=== PATIENT | female | born 1985 | race American Indian/Alaskan Native ===

== ENCOUNTER 2018-07-28 16:05 | Emergency (ER) | payer OTHER ==
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
--- NOTE | 2018-07-28 18:37 | Cat Scan Report ---
PROCEDURE: CT LUMBAR SPINE WO CON HISTORY: numbness rectal/vaginal, left leg tingling FINDINGS: Unenhanced CT of the lumbar spine was performed and data was reformatted into the sagittal and coronal planes. These images demonstrate no fracture or malalignment of the lumbar spine. There is no evidence of davey tral canal stenosis and significant neural foraminal narrowing or nerve root impingement. There is a right nonobstructing renal calculus 0.5 cm. There is an IUD. IMPRESSION: No fracture is seen in the lumbar spine No evidence of canal stenosis or nerve root impingement Right nonobstructing renal calculus This document is electronically signed by Abrahan Nieves MD., July 28 2018 06:34:46 PM ET
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
[2018-07-28 20:03] LABS: Basophils # (Auto) 0.1 K/mm3 (0.0-0.1); Basophils % (Auto) 1.4 % (0.0-1.8); Eosinophils # (Auto) 0.4 K/mm3 (0.0-0.4); Eosinophils % (Auto) 6.4 % (0.0-4.3); Hematocrit 34.5 % (30.3-42.9); Hemoglobin 12.1 gm/dl (10.1-14.3); Lymphocytes # (Auto) 2.8 K/mm3 (1.2-5.4); Lymphocytes % (Auto) 40.9 % (13.4-35.0); Mean Corpuscular HGB Conc 35 % (30-34); Mean Corpuscular Volume 95 fl (79-97); Monocytes # (Auto) 0.7 K/mm3 (0.0-0.8); Monocytes % (Auto) 10.1 % (0.0-7.3); Platelet Count 257 K/mm3 (140-440); Red Blood Count 3.63 M/mm3 (3.65-5.03); Red Cell Distribution Width 13.6 % (13.2-15.2)
[2018-07-28 20:13] LABS: INR 0.99 (0.87-1.13)
[2018-07-28 20:27] LABS: Alanine Aminotransferase 31 units/L (7-56); Albumin 4.4 g/dL (3.9-5); BUN/Creatinine Ratio 13; Blood Urea Nitrogen 9 mg/dL (7-17); Calcium 8.9 mg/dL (8.4-10.2); Hemolysis Index 11
[2018-07-29 19:23] VITALS: BP 126/91
== END 2018-07-28 20:37 | disposition other institution (70) ==
LOC: ED 16:05
DX: G83.4 Cauda equina syndrome (principal)
CPT/HCPCS: 36415; 72131; 80053; 85025; 85610; 85730; 99285